=== PATIENT | female | born 1960 | race Caucasian/White ===

== ENCOUNTER 2022-12-08 10:58 | Inpatient (IN) | payer OTHER ==
[~2022-12-08] VITALS: Ht 170.2 cm; Wt 87.1 kg
[2022-12-08 11:03] VITALS: BP 112/44; PULSE 52; RESP 18; TEMP 98.5; O2SAT 97
[2022-12-08 11:14] VITALS: O2SAT 98
[2022-12-08] MEDS ORDERED: NACL 0.9% 1,000 ML IV ONE (11:15)
[2022-12-08 11:52] LABS: BASOPHILS # (AUTO) 0.1 K/uL (0.00-0.22); BASOPHILS % (AUTO) 0.4 % (0.0-2.0); EOSINOPHILS # (AUTO) 0.1 K/uL (0-0.4); EOSINOPHILS % (AUTO) 0.6 % (0.0-4.0); HEMATOCRIT 29.5 % (36-48); HEMOGLOBIN 9.6 g/dL (12.0-16.0); LYMPHOCYTES # (AUTO) 1.7 K/uL (2.5-16.5); LYMPHOCYTES % (AUTO) 13.9 % (20.5-51.1); MEAN CORPUSCULAR HEMOGLOBIN 30 pg (27-31); MEAN CORPUSCULAR HGB CONC 32 g/dL (33-37); MEAN CORPUSCULAR VOLUME 93.3 fL (80-94); MONOCYTES # (AUTO) 0.7 K/uL (0.8-1.0); MONOCYTES % (AUTO) 5.8 % (1.7-9.3); NEUTROPHILS # (AUTO) 9.8 K/uL (1.8-7.7); NEUTROPHILS % (AUTO) 79.3 % (42.2-75.2); PLATELET COUNT (AUTO) 334 K/uL (140-450); RED BLOOD CELL COUNT(AUTO) 3.16 MIL/uL (4.20-5.40); RED CELL DISTRIBUTION WIDTH 13.7 % (11.6-13.7); WHITE BLOOD COUNT (AUTO) 12.3 K/uL (4.8-10.8)
[2022-12-08 12:20] LABS: ALBUMIN 3.4 g/dL (3.4-5.0); CALCIUM 9.2 mg/dL (8.5-10.1); CARBON DIOXIDE 26.1 mmol/L (21-32); CREATININE 2.8 mg/dL (0.6-1.3); POTASSIUM 5.1 mmol/L (3.5-5.1); TOTAL BILIRUBIN 0.3 mg/dL (0.0-1.0); TOTAL PROTEIN, SERUM 7.2 g/dL (6.4-8.2)
[2022-12-08 12:28] LABS: APPEARANCE,URINE CLEAR (CLEAR); BILIRUBIN,URINE NEGATIVE (NEGATIVE); BLOOD, URINE NEGATIVE (NEGATIVE); COLOR,URINE YELLOW (YELLOW); LEUKOCYTE ESTERASE ,URINE TRACE (NEGATIVE); NITRITE, URINE NEGATIVE (NEGATIVE); PROTEIN,URINE 2+ (NEGATIVE); UGLUCOSE 3+ (NEGATIVE); UROBILINOGEN,URINE 0.2 EU/dL (0.2 - 1)
[2022-12-08 12:30] LABS: LIPASE 105 U/L (73-393); THYROID STIMULATING HORMONE 1.12 uIU/mL (0.34-3.74)
[2022-12-08 12:40] LABS: BACTERIA,URINE 1+ /HPF (None Seen); RBC,URINE 0-5 /HPF (0-5); SQUAMOUS EPITHELIAL CELL,UR 4-10 (MOD) /LPF (0-3 (FEW)); WBC,URINE 16-25 (MOD) /HPF (0-5)
[2022-12-08] MEDS ORDERED: cefTRIAXone 1,000 MG VIAL ONE (13:16)
[2022-12-08 13:40] LABS: LACTIC ACID 0.8 mmol/L (0.4-2.0)
[2022-12-08] MEDS ORDERED: MAGNESIUM OXIDE 400 MG TAB PO PRN (14:00)
[2022-12-08] MEDS ORDERED: MAG SULF 2000 MG/WATER PREMIX 50 ML IV PRN (14:00)
[2022-12-08] MEDS ORDERED: ACETAMINOPHEN 325 MG TAB PO PRN (14:00)
[2022-12-08] MEDS ORDERED: ONDANSETRON 4 MG/2 ML VIAL IVP PRN (14:00)
[2022-12-08] MEDS ORDERED: KCL 20 MEQ IN 100 mL PREMIX 200 ML IV PRN (14:00)
[2022-12-08] MEDS ORDERED: MORPHINE SULFATE 2 MG/ML SYR IVP PRN (14:00)
[2022-12-08] MEDS ORDERED: POTASSIUM CHLORIDE 10 MEQ TABER PO PRN (14:00)
[2022-12-08] MEDS ORDERED: DEXTROSE 50% 50 ML SYR IVP PRN (14:05)
[2022-12-08] MEDS ORDERED: SPIR25TA20 PO (14:59)
[2022-12-08] MEDS ORDERED: METF-352 PO (14:59)
[2022-12-08] MEDS ORDERED: OMEP-283 PO (14:59)
[2022-12-08] MEDS ORDERED: EMPA25TA PO (14:59)
[2022-12-08] MEDS ORDERED: OMEP40EC23 PO (14:59)
[2022-12-08] MEDS ORDERED: GABA-636 PO (14:59)
[2022-12-08] MEDS ORDERED: LEVO0.0712 PO (14:59)
[2022-12-08] MEDS ORDERED: HUM SUBQ (14:59)
[2022-12-08] MEDS ORDERED: [UNRECOGNIZED DRUG - CODE] (14:59)
[2022-12-08] MEDS ORDERED: ACET-2214 PO (14:59)
[2022-12-08] MEDS ORDERED: FURO40TA9 PO (14:59)
[2022-12-08] MEDS ORDERED: ATOR10TA51 PO (14:59)
[2022-12-08] MEDS ORDERED: METO50TE2 PO (15:03)
[2022-12-08] MEDS ORDERED: MECL-370 PO (15:05)
[2022-12-08] MEDS ORDERED: FERR325E14 PO (15:06)
[2022-12-08] MEDS: BLOOD GLUCOSE MONITORING 1 DEV DEV FS SCH ×3 (16:31→21:22)
[2022-12-08 18:20] VITALS: PULSE 75
[2022-12-08 18:21] VITALS: BP 153/74; PULSE 69; RESP 18; TEMP 97; O2SAT 98
[2022-12-08 18:25] VITALS: PULSE 69; RESP 18; O2SAT 98
[2022-12-08 20:00] VITALS: BP 149/74; PULSE 72; PULSE 73; RESP 16; O2SAT 97
[2022-12-08] MEDS ORDERED: ATORVASTATIN 20 MG TAB PO SCH (21:00)
[2022-12-08] MEDS: HYDROcodone/APAP 5/325 MG 1 TAB TAB PO PRN (21:34)
[2022-12-08] MEDS: INSULIN LISPRO SLIDING SCALE 100 UNITS/ML VIAL SUBQ PRN (21:39)
[2022-12-08] MEDS ORDERED: ZOLPIDEM 5 MG TAB PO ONE (23:05)
[2022-12-09] VITALS (7 sets, daily range): BP systolic 120–169; BP diastolic 50–74; PULSE 68–104; RESP 16–19; TEMP 96.3–98.2; O2SAT 97–99
[2022-12-09 05:24] LABS: BASOPHILS % (AUTO) 0.5 % (0.0-2.0); EOSINOPHILS # (AUTO) 0.2 K/uL (0-0.4); EOSINOPHILS % (AUTO) 1.8 % (0.0-4.0); HEMATOCRIT 27.2 % (36-48); LYMPHOCYTES % (AUTO) 22.7 % (20.5-51.1); MEAN CORPUSCULAR HEMOGLOBIN 31 pg (27-31); MEAN CORPUSCULAR HGB CONC 33 g/dL (33-37); MEAN CORPUSCULAR VOLUME 92.8 fL (80-94); MONOCYTES # (AUTO) 0.7 K/uL (0.8-1.0); MONOCYTES % (AUTO) 7.8 % (1.7-9.3); NEUTROPHILS % (AUTO) 67.2 % (42.2-75.2); PLATELET COUNT (AUTO) 275 K/uL (140-450); RED BLOOD CELL COUNT(AUTO) 2.93 MIL/uL (4.20-5.40); RED CELL DISTRIBUTION WIDTH 13.8 % (11.6-13.7); WHITE BLOOD COUNT (AUTO) 8.9 K/uL (4.8-10.8)
[2022-12-09 06:02] LABS: ALBUMIN 3.2 g/dL (3.4-5.0); ANION GAP 15.6 (8-16); CALCIUM 9.5 mg/dL (8.5-10.1); CARBON DIOXIDE 22.9 mmol/L (21-32); MAGNESIUM 2.7 mg/dL (1.8-2.4); POTASSIUM 4.5 mmol/L (3.5-5.1); TOTAL BILIRUBIN 0.2 mg/dL (0.0-1.0); TOTAL PROTEIN, SERUM 6.9 g/dL (6.4-8.2)
[2022-12-09 06:04] LABS: FREE T4 (FREE THYROXINE) 1.12 ng/dL (0.76-1.46); THYROID STIMULATING HORMONE 0.9 uIU/mL (0.34-3.74)
[2022-12-09] MEDS: BLOOD GLUCOSE MONITORING 1 DEV DEV FS SCH ×3 (06:28→17:17)
[2022-12-09] MEDS: INSULIN LISPRO SLIDING SCALE 100 UNITS/ML VIAL SUBQ PRN ×3 (06:29→17:15)
[2022-12-09] MEDS ORDERED: GABAPENTIN 100 MG CAP PO SCH (09:00)
[2022-12-09] MEDS ORDERED: ASPIRIN 81 MG TAB.CHEW PO SCH (09:00)
[2022-12-09] MEDS ORDERED: FERROUS SULFATE 325 MG TABEC PO SCH (09:00)
[2022-12-09] MEDS ORDERED: LEVOTHYROXINE 0.075 MG TAB PO SCH (09:00)
[2022-12-09] MEDS ORDERED: PANTOPRAZOLE 40 MG TABEC PO SCH (09:00)
[2022-12-09] MEDS ORDERED: METOPROLOL SUCCINATE 50 MG TABER PO SCH (09:00)
[2022-12-09] MEDS ORDERED: hydrALAZINE 20 MG/ML VIAL IVP PRN (13:55)
[2022-12-09] MEDS ORDERED: NIFEdipine 30 MG TABER PO SCH (14:50)
[2022-12-09] MEDS ORDERED: CEFD300C3 PO (17:03)
[2022-12-09] MEDS ORDERED: LINA5TAB PO (17:03)
[2022-12-09] MEDS ORDERED: NIFE30TA36 PO (17:03)
[2022-12-09] MEDS: HYDROcodone/APAP 5/325 MG 1 TAB TAB PO PRN (17:37)
[2022-12-09] MEDS ORDERED: ACET-9527 PO (18:24)
[2022-12-10] MEDS ORDERED: NIFEdipine 30 MG TABER PO SCH (09:00)
== END 2022-12-09 19:05 | disposition home or self-care (01) | DRG 469 ==
LOC: MED 10:58 → MTU 14:02
PROVIDERS: ADMIT Internal Medicine; ATTEND Internal Medicine
DX: N17.9 Acute kidney failure, unspecified (principal); R65.10 Systemic inflammatory response syndrome (SIRS) of non-infectious origin without acute organ dysfunction; E11.22 Type 2 diabetes mellitus with diabetic chronic kidney disease; D64.9 Anemia, unspecified; E03.9 Hypothyroidism, unspecified; E11.65 Type 2 diabetes mellitus with hyperglycemia; N39.0 Urinary tract infection, site not specified; R07.9 Chest pain, unspecified; J98.11 Atelectasis; I49.3 Ventricular premature depolarization; K21.9 Gastro-esophageal reflux disease without esophagitis; E78.5 Hyperlipidemia, unspecified; I12.9 Hypertensive chronic kidney disease with stage 1 through stage 4 chronic kidney disease, or unspecified chronic kidney disease; N18.9 Chronic kidney disease, unspecified; Z79.899 Other long term (current) drug therapy; Z90.49 Acquired absence of other specified parts of digestive tract
CPT/HCPCS: 36415; 71045; 80053; 81001; 82948; 83605; 83690; 83735; 83880; 84439; 84443; 84484; 85025; 87040; 87081; 87086; 93005; 96361; 96365; 99285; J0360; J0696; J1644; J1815; J7030; J7060; Q0092